=== PATIENT | female | born 1950 | race Caucasian/White ===

== ENCOUNTER 2018-05-13 08:56 | Day surgery (SDC) | payer MEDICARE ==
[2018-05-13] MEDS ORDERED: Lidocaine 1% 30 ML SDV INJECT ONE (08:57)
[2018-05-13] MEDS ORDERED: Propofol 200 MG/20 ML SDV IV ONE (08:57)
[2018-05-13] MEDS ORDERED: Lactated Ringers 1,000 ML IV SCH (09:00)
--- NOTE | 2018-05-13 11:29 | PCM.OPNOTE ---
- General Post-Op/Procedure Note Date of Surgery/Procedure: 05/13/18 Operative Procedure(s): c scope with bx Findings: transverse colon polyp ascending colon polyp rectal Pre Op Diagnosis: + Cologuard Post-Op Diagnosis: transverse colon polyp. ascending colon polyp. rectal Anesthesia Technique: MAC Primary Surgeon: Jose Soliz Anesthesia Provider: John Paul Katz Pathology: transverse colon polyp ascending colon polyp Complications: None Condition: Good Free Text/Narrative:: see dictation
--- NOTE | 2018-05-13 14:44 | OR ---
DATE OF OPERATION: 05/13/2018 SURGEON: Jose Soliz MD PROCEDURE PERFORMED: Colonoscopy with cold forceps biopsy. PREOPERATIVE DIAGNOSIS: Positive Cologuard. POSTOPERATIVE DIAGNOSES: Ascending colon polyp, transverse colon polyp, and rectal polyp. INDICATIONS FOR PROCEDURE: This is a 67-year-old white female, who apparently had a colonoscopy 5 years ago which was negative, had a recent Cologuard test which did come back as positive. She was offered and accepted colonoscopy as part of her followup. DESCRIPTION OF OPERATION: After an excellent IV sedation was administered, digital rectal exam was performed. No marked abnormality was noted. Flexible colonoscope was inserted and advanced to the cecum without difficulty. The prep was excellent. The following findings were noted. Ascending colon, distal ascending colon polyp, biopsied with cold biopsy forceps and sent for permanent. This measured approximately 3 mm in size. Transverse colon, at the distal transverse colon, an additional small polyp approximately 3 mm, biopsied and sent for permanent. Descending colon was unremarkable. The sigmoid was unremarkable. At the proximal rectum near the pelvis, though just beyond the pelvic brim, there was a small pedunculated polyp, we were unable to maneuver the scope to get a loop snare around it or the biopsy forceps. Attempts using a rigid sigmoidoscope were also unsuccessful in being able to visualize and biopsy. The size is approximately 4 mm. We elected to attempt this removal in the clinic with the flexible sigmoidoscope, which was smaller and flexible and more easy to use. /[id number] /MODL
== END 2018-05-13 12:25 | disposition home or self-care (01) ==
LOC: FB.SDS 08:56
PROVIDERS: ATTEND Surgery
DX: D12.2 Benign neoplasm of ascending colon (principal); D12.3 Benign neoplasm of transverse colon; K62.1 Rectal polyp; I10 Essential (primary) hypertension; E78.00 Pure hypercholesterolemia, unspecified; F41.9 Anxiety disorder, unspecified; F32.9 Major depressive disorder, single episode, unspecified; E66.01 Morbid (severe) obesity due to excess calories; Z68.42 Body mass index [BMI] 45.0-49.9, adult; Z87.891 Personal history of nicotine dependence; Z83.71 Family history of colonic polyps; Z79.899 Other long term (current) drug therapy
CPT/HCPCS: 00811; 45380; J2001; J2704; J7120; 88305

== ENCOUNTER 2020-07-25 06:40 | Day surgery (SDC) | payer MEDICARE ==
[2020-07-25] MEDS ORDERED: Glycopyrrolate 0.2 MG/ML 5 ML MDV IV ONE (06:41)
[2020-07-25] MEDS ORDERED: Propofol 200 MG/20 ML SDV IV ONE (06:41)
[2020-07-25] MEDS ORDERED: Lidocaine 2% 5 ML SDV IV ONE (06:41)
[2020-07-25] MEDS ORDERED: Lactated Ringers 1,000 ML IV SCH (06:45)
[2020-07-25] MEDS ORDERED: Sodium Chloride 0.9% 10 ML Syringe FLUSH PRN (06:45)
--- NOTE | 2020-07-25 08:46 | PCM.HPR ---
H & P Addendum review - H & P Addendum Review Date of Original H & P: 07/21/20 Date Reviewed: 07/25/20 Time Reviewed: 08:02 Patient was Examined: No Changes
--- NOTE | 2020-07-25 08:48 | PCM.OPNOTE ---
- General Post-Op/Procedure Note Date of Surgery/Procedure: 07/25/20 Operative Procedure(s): Colonoscopy with bx and polypectomy Findings: Sig colitis, sig tics, rectal polyp Pre Op Diagnosis: Abd pain, hematochezia Post-Op Diagnosis: Same Anesthesia Technique: MAC Primary Surgeon: Chad Roberson Complications: None Condition: Good
--- NOTE | 2020-07-26 08:59 | OR ---
DATE OF OPERATION: 07/25/2020 SURGEON: Chad Roberson MD PREOPERATIVE DIAGNOSIS: Hematochezia with abdominal pain. POSTOPERATIVE DIAGNOSES: 1. Sigmoid colitis. 2. Sigmoid diverticulosis. 3. Rectal polyp. PROCEDURE: Colonoscopy with biopsies and polypectomy. ANESTHESIA: IV sedation. PROCEDURE: The patient was brought to the procedure room, where she was placed on her left side and IV sedation administered. Digital rectal exam was performed, which was normal. The colonoscope was inserted and advanced to the level of the cecum without difficulty. Cecal position was confirmed by identifying the appendiceal lumen and ileocecal valve. Prep was good and surfaces were well visualized. Upon withdrawing the scope, the ascending, transverse, and descending colon were normal in appearance. The sigmoid colon had two areas of colitis, each measuring approximately 3 cm in length and were approximately 1/4 circumferential. These were characterized with inflammation, friability, and a central erosion area which was likely the area of bleeding that is now healing. This could be consistent with ischemic colitis or less likely ulcerative colitis or Crohn disease. I did two biopsies from each of these areas. There were also multiple sigmoid diverticula present. The rectum has a small 6 mm sessile polyp located 10 cm from the anal verge that was removed with a hot snare and retrieved for pathology review. Retroflexion was normal. Air was removed and the scope withdrawn. The patient tolerated the procedure well and returned to recovery in stable condition. The patient will be contacted with the pathology report when it returns. I would recommend she undergo surveillance colonoscopy again in five years. /[id number] REBA/CHIKI
== END 2020-07-25 09:47 | disposition home or self-care (01) ==
LOC: FB.SDS 06:40
PROVIDERS: ATTEND Surgery
DX: K62.1 Rectal polyp (principal); K57.30 Diverticulosis of large intestine without perforation or abscess without bleeding; K52.9 Noninfective gastroenteritis and colitis, unspecified; I10 Essential (primary) hypertension; E78.5 Hyperlipidemia, unspecified; E11.9 Type 2 diabetes mellitus without complications; E66.01 Morbid (severe) obesity due to excess calories; Z68.42 Body mass index [BMI] 45.0-49.9, adult; Z87.891 Personal history of nicotine dependence
CPT/HCPCS: 00811-QZ; 82947; 88305; J2704; J3490; J7120

== ENCOUNTER 2021-03-05 11:50 | Emergency (ER) | payer MEDICARE ==
--- NOTE | 2021-03-05 12:59 | EDM.PDOC ---
ED HPI GENERAL MEDICAL PROBLEM - General Chief Complaint: Cardiovascular Problem Stated Complaint: chest pain Time Seen by Provider: 03/05/21 12:10 Source of Information: Reports: Patient History Limitations: Reports: No Limitations - History of Present Illness INITIAL COMMENTS - FREE TEXT/NARRATIVE: c/o palpitations x 1-2m has not d/w PCP Shannon Reynam, in process of changing to new doc Dr Dupont, had waited to start of new year to make appointment as her insurance had changed last saw Shannon 6m ago, reports her A1C was 6 then, "borderline," and she was begun on Januvia also on BP meds x 2 and omeprazole no cp, never had CV issues, never saw network associate no sob/STONE can feel her heart pound in her chest, HR 91 when resting and alone in room, HR 117 when I was speaking to here EKG at 12:04p with SR, rate 82, PACs noted, also with sinus arrhythmia, low voltage (pt with BMI 46), no acute/ST/ischemic changes SH: worked 40y as RN, 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24h 03/05/21 [Rx] Past Medical History HEENT History: Reports: Impaired Vision Cardiovascular History: Reports: High Cholesterol, Hypertension Respiratory History: Reports: None Gastrointestinal History: Reports: GERD Genitourinary History: Reports: Other (See Below) Other Genitourinary History: TENDENCY TO HAVE YEAST INFECTIONS AMY WITH ANTIBIOTICS REHABILITATION MANAGER History: Reports: Other REHABILITATION MANAGER History: II PARA II Musculoskeletal History: Reports: None Neurological History: Reports: None Psychiatric History: Reports: Anxiety Endocrine/Metabolic History: Reports: Diabetes, Type II, Obesity/BMI 30+ Hematologic History: Reports: Anemia Immunologic History: Reports: None Oncologic (Cancer) History: Reports: None Dermatologic History: Reports: Other (See Below) Other Dermatologic History: LARGE 10 CM CIRCULAR AREA ON MIDBACK, STATES IS FROM CHRONIC RASH. - Infectious Disease History Infectious Disease History: Reports: None - Past Surgical History Head Surgeries/Procedures: Reports: None HEENT Surgical History: Reports: Tonsillectomy Cardiovascular Surgical History: Reports: None Respiratory Surgical History: Reports: None GI Surgical History: Reports: Appendectomy, Colonoscopy, EGD Female Surgical History: Reports: Hysterectomy, Salpingo-Oophorectomy Neurological Surgical History: Reports: None Musculoskeletal Surgical History: Reports: None Oncologic Surgical History: Reports: None Social & Family History - Family History GI: Reports: Colon Polyps - Tobacco Use Tobacco Use Status *Q: Never Tobacco User - Caffeine Use Caffeine Use: Reports: None - Recreational Drug Use Recreational Drug Use: No ED ROS GENERAL - Review of Systems Review Of Systems: See Below Constitutional: Reports: No Symptoms HEENT: Reports: No Symptoms Respiratory: Reports: No Symptoms Cardiovascular: Reports: Palpitations. Denies: Chest Pain, Edema Endocrine: Reports: No Symptoms GI/Abdominal: Reports: No Symptoms : Reports: No Symptoms Musculoskeletal: Reports: No Symptoms Skin: Reports: No Symptoms Neurological: Reports: No Symptoms Psychiatric: Reports: No Symptoms Hematologic/Lymphatic: Reports: No Symptoms Immunologic: Reports: No Symptoms ED EXAM, GENERAL - Physical Exam Exam: See Below Exam Limited By: No Limitations General Appearance: Alert, WD/WN, No Apparent Distress Eye Exam: Bilateral Eye: EOMI, PERRL Ears: Hearing Grossly Normal Nose: Normal Inspection, Normal Mucosa, No Blood Throat/Mouth: Normal Inspection, Normal Lips, Normal Teeth, Normal Gums, Normal Oropharynx, Normal Voice, No Airway Compromise Head: Atraumatic, Normocephalic Neck: Normal Inspection, Supple, Non-Tender, Full Range of Motion. No: Lymphadenopathy (R), Lymphadenopathy (L) Respiratory/Chest: No Respiratory Distress, Lungs Clear, Normal Breath Sounds, No Accessory Muscle Use, Chest Non-Tender Cardiovascular: Other (premature beats, no heave, no m/r/g, quiet precordium) GI/Abdominal: Normal Bowel Sounds, Soft, Non-Tender, No Distention Back Exam: Normal Inspection, Full Range of Motion. No: CVA Tenderness (R), CVA Tenderness (L) Extremities: Normal Inspection, Normal Range of Motion, Non-Tender, Other (trace pretib edema b/l, symmetric) Neurological: Alert, Oriented, CN II-XII Intact, Normal Cognition, Normal Gait, No Motor/Sensory Deficits Psychiatric: Other (very anxious) Skin Exam: Warm, Dry, Intact, Normal Color, No Rash Lymphatic: No Adenopathy Course - Vital Signs Last Recorded V/S: Last Vital Signs Temp 36.4 C 03/05/21 11:50 Pulse 111 H 03/05/21 13:27 Resp 18 03/05/21 13:27 BP 152/63 H 03/05/21 13:27 Pulse Ox 99 03/05/21 13:27 - Orders/Labs/Meds Orders: Active Orders 24 hr Category Date Time Status Chest 2V [CR] Stat Exams 03/05/21 12:53 Taken EKG 12 Lead [EK] Routine Ther 03/05/21 12:13 Ordered Labs: Laboratory Tests 03/05/21 03/05/21 03/05/21 Range/Units 12:13 12:25 12:25 WBC 6.3 (3.0-10.3) x10-3/uL RBC 4.69 (3.60-5.20) x10(6)uL Hgb 12.7 (11.4-15.5) g/dL Hct 39.5 (34.2-48.2) % MCV 84.1 (76.7-100.5) fL MCH 27.0 (23.9-33.9) pg MCHC 32.1 (31.9-34.8) g/dL RDW 15.7 (12.3-16.5) % Plt Count 189 (151-488) x10(3)uL MPV 7.1 (7.1-12.4) fL Neut % (Auto) 73.0 (30.8-76.2) % Lymph % (Auto) 20.7 (18.4-52.1) % Potter % (Auto) 4.7 (4.4-15.7) % Eos % (Auto) 1.2 (0.6-8.1) % Baso % (Auto) 0.4 (0.2-1.5) % Neut # (Auto) 4.6 (1.5-6.3) x10-3/uL Lymph # (Auto) 1.3 (1.0-4.4) x10-3/uL Potter # (Auto) 0.3 (0.3-1.0) x10-3/uL Eos # (Auto) 0.1 (0.0-0.8) x10-3/uL Baso # (Auto) 0.0 (0.0-0.1) x10-3/uL D-Dimer, Quantitative < 0.19 (0.0-0.59) mg/LFEU Sodium (135-145) mmol/L Potassium (3.5-5.3) mmol/L Chloride (100-110) mmol/L Carbon Dioxide (21-32) mmol/L BUN (7-18) mg/dL Creatinine (0.55-1.02) mg/dL Est Cr Clr Drug Dosing mL/min Estimated GFR (MDRD) (>60) BUN/Creatinine Ratio (9-20) Glucose (80-116) mg/dL Hemoglobin A1c (<5.7) % Calcium (8.6-10.2) mg/dL Magnesium (1.8-2.5) mg/dL Total Bilirubin (0.1-1.3) mg/dL AST (5-25) IU/L ALT (12-36) U/L Alkaline Phosphatase (56-112) IU/L Troponin I (4.0-60.3) pg/mL C-Reactive Protein (0.5-0.9) mg/dL NT-Pro-B Natriuret Pep (<=125) pg/mL Total Protein (6.0-8.0) g/dL Albumin (3.2-4.6) g/dL Globulin g/dL Albumin/Globulin Ratio TSH, Ultra Sensitive (0.36-3.74) IU/mL Urine Color Yellow (YELLOW) Urine Appearance Clear (CLEAR) Urine pH 7.0 H (5.0-6.5) Ur Specific [place] 1.010 (1.010-1.025) Urine Protein Negative (NEGATIVE) mg/dL Urine Glucose (UA) Normal (NORMAL) mg/dL Urine Ketones Negative (NEGATIVE) mg/dL Urine Occult Blood Negative (NEGATIVE) Urine Nitrite Negative (NEGATIVE) Urine Bilirubin Negative (NEGATIVE) Urine Urobilinogen Normal (NEGATIVE) mg/dL Ur Leukocyte Esterase Negative (NEGATIVE) Urine RBC 0-5 (0-5) Urine WBC 0-5 (0-5) Ur Squamous Epith Cells Rare (NS,R,O) Urine Bacteria Rare H (NS) SARS-CoV-2 RNA (CRISTOFER) (NEGATIVE) 03/05/21 03/05/21 03/05/21 Range/Units 12:25 12:25 12:25 WBC (3.0-10.3) x10-3/uL RBC (3.60-5.20) x10(6)uL Hgb (11.4-15.5) g/dL Hct (34.2-48.2) % MCV (76.7-100.5) fL MCH (23.9-33.9) pg MCHC (31.9-34.8) g/dL RDW (12.3-16.5) % Plt Count (151-488) x10(3)uL MPV (7.1-12.4) fL Neut % (Auto) (30.8-76.2) % Lymph % (Auto) (18.4-52.1) % Potter % (Auto) (4.4-15.7) % Eos % (Auto) (0.6-8.1) % Baso % (Auto) (0.2-1.5) % Neut # (Auto) (1.5-6.3) x10-3/uL Lymph # (Auto) (1.0-4.4) x10-3/uL Potter # (Auto) (0.3-1.0) x10-3/uL Eos # (Auto) (0.0-0.8) x10-3/uL Baso # (Auto) (0.0-0.1) x10-3/uL D-Dimer, Quantitative (0.0-0.59) mg/LFEU Sodium 140 (135-145) mmol/L Potassium 3.8 (3.5-5.3) mmol/L Chloride 100 (100-110) mmol/L Carbon Dioxide 30 (21-32) mmol/L BUN 12 (7-18) mg/dL Creatinine 0.9 (0.55-1.02) mg/dL Est Cr Clr Drug Dosing 55.23 mL/min Estimated GFR (MDRD) > 60 (>60) BUN/Creatinine Ratio 13.3 (9-20) Glucose 185 H (80-116) mg/dL Hemoglobin A1c (<5.7) % Calcium 8.8 (8.6-10.2) mg/dL Magnesium (1.8-2.5) mg/dL Total Bilirubin 0.6 (0.1-1.3) mg/dL AST 25 (5-25) IU/L ALT 40 H (12-36) U/L Alkaline Phosphatase 98 (56-112) IU/L Troponin I 6.1 (4.0-60.3) pg/mL C-Reactive Protein 3.6 H* (0.5-0.9) mg/dL NT-Pro-B Natriuret Pep 464 H (<=125) pg/mL Total Protein 7.6 (6.0-8.0) g/dL Albumin 3.5 (3.2-4.6) g/dL Globulin 4.1 g/dL Albumin/Globulin Ratio 0.9 TSH, Ultra Sensitive 1.73 (0.36-3.74) IU/mL Urine Color (YELLOW) Urine Appearance (CLEAR) Urine pH (5.0-6.5) Ur Specific [place] (1.010-1.025) Urine Protein (NEGATIVE) mg/dL Urine Glucose (UA) (NORMAL) mg/dL Urine Ketones (NEGATIVE) mg/dL Urine Occult Blood (NEGATIVE) Urine Nitrite (NEGATIVE) Urine Bilirubin (NEGATIVE) Urine Urobilinogen (NEGATIVE) mg/dL Ur Leukocyte Esterase (NEGATIVE) Urine RBC (0-5) Urine WBC (0-5) Ur Squamous Epith Cells (NS,R,O) Urine Bacteria (NS) SARS-CoV-2 RNA (CRISTOFER) (NEGATIVE) 03/05/21 03/05/21 03/05/21 Range/Units 12:25 12:25 13:06 WBC (3.0-10.3) x10-3/uL RBC (3.60-5.20) x10(6)uL Hgb (11.4-15.5) g/dL Hct (34.2-48.2) % MCV (76.7-100.5) fL MCH (23.9-33.9) pg MCHC (31.9-34.8) g/dL RDW (12.3-16.5) % Plt Count (151-488) x10(3)uL MPV (7.1-12.4) fL Neut % (Auto) (30.8-76.2) % Lymph % (Auto) (18.4-52.1) % Potter % (Auto) (4.4-15.7) % Eos % (Auto) (0.6-8.1) % Baso % (Auto) (0.2-1.5) % Neut # (Auto) (1.5-6.3) x10-3/uL Lymph # (Auto) (1.0-4.4) x10-3/uL Potter # (Auto) (0.3-1.0) x10-3/uL Eos # (Auto) (0.0-0.8) x10-3/uL Baso # (Auto) (0.0-0.1) x10-3/uL D-Dimer, Quantitative (0.0-0.59) mg/LFEU Sodium (135-145) mmol/L Potassium (3.5-5.3) mmol/L Chloride (100-110) mmol/L Carbon Dioxide (21-32) mmol/L BUN (7-18) mg/dL Creatinine (0.55-1.02) mg/dL Est Cr Clr Drug Dosing mL/min Estimated GFR (MDRD) (>60) BUN/Creatinine Ratio (9-20) Glucose (80-116) mg/dL Hemoglobin A1c 6.4 H (<5.7) % Calcium (8.6-10.2) mg/dL Magnesium 1.9 (1.8-2.5) mg/dL Total Bilirubin (0.1-1.3) mg/dL AST (5-25) IU/L ALT (12-36) U/L Alkaline Phosphatase (56-112) IU/L Troponin I (4.0-60.3) pg/mL C-Reactive Protein (0.5-0.9) mg/dL NT-Pro-B Natriuret Pep (<=125) pg/mL Total Protein (6.0-8.0) g/dL Albumin (3.2-4.6) g/dL Globulin g/dL Albumin/Globulin Ratio TSH, Ultra Sensitive (0.36-3.74) IU/mL Urine Color (YELLOW) Urine Appearance (CLEAR) Urine pH (5.0-6.5) Ur Specific [place] (1.010-1.025) Urine Protein (NEGATIVE) mg/dL Urine Glucose (UA) (NORMAL) mg/dL Urine Ketones (NEGATIVE) mg/dL Urine Occult Blood (NEGATIVE) Urine Nitrite (NEGATIVE) Urine Bilirubin (NEGATIVE) Urine Urobilinogen (NEGATIVE) mg/dL Ur Leukocyte Esterase (NEGATIVE) Urine RBC (0-5) Urine WBC (0-5) Ur Squamous Epith Cells (NS,R,O) Urine Bacteria (NS) SARS-CoV-2 RNA (CRISTOFER) Negative (NEGATIVE) 03/05/21 Range/Units 14:49 WBC (3.0-10.3) x10-3/uL RBC (3.60-5.20) x10(6)uL Hgb (11.4-15.5) g/dL Hct (34.2-48.2) % MCV (76.7-100.5) fL MCH (23.9-33.9) pg MCHC (31.9-34.8) g/dL RDW (12.3-16.5) % Plt Count (151-488) x10(3)uL MPV (7.1-12.4) fL Neut % (Auto) (30.8-76.2) % Lymph % (Auto) (18.4-52.1) % Potter % (Auto) (4.4-15.7) % Eos % (Auto) (0.6-8.1) % Baso % (Auto) (0.2-1.5) % Neut # (Auto) (1.5-6.3) x10-3/uL Lymph # (Auto) (1.0-4.4) x10-3/uL Potter # (Auto) (0.3-1.0) x10-3/uL Eos # (Auto) (0.0-0.8) x10-3/uL Baso # (Auto) (0.0-0.1) x10-3/uL D-Dimer, Quantitative (0.0-0.59) mg/LFEU Sodium (135-145) mmol/L Potassium (3.5-5.3) mmol/L Chloride (100-110) mmol/L Carbon Dioxide (21-32) mmol/L BUN (7-18) mg/dL Creatinine (0.55-1.02) mg/dL Est Cr Clr Drug Dosing mL/min Estimated GFR (MDRD) (>60) BUN/Creatinine Ratio (9-20) Glucose (80-116) mg/dL Hemoglobin A1c (<5.7) % Calcium (8.6-10.2) mg/dL Magnesium (1.8-2.5) mg/dL Total Bilirubin (0.1-1.3) mg/dL AST (5-25) IU/L ALT (12-36) U/L Alkaline Phosphatase (56-112) IU/L Troponin I 5.7 (4.0-60.3) pg/mL C-Reactive Protein (0.5-0.9) mg/dL NT-Pro-B Natriuret Pep (<=125) pg/mL Total Protein (6.0-8.0) g/dL Albumin (3.2-4.6) g/dL Globulin g/dL Albumin/Globulin Ratio TSH, Ultra Sensitive (0.36-3.74) IU/mL Urine Color (YELLOW) Urine Appearance (CLEAR) Urine pH (5.0-6.5) Ur Specific [place] (1.010-1.025) Urine Protein (NEGATIVE) mg/dL Urine Glucose (UA) (NORMAL) mg/dL Urine Ketones (NEGATIVE) mg/dL Urine Occult Blood (NEGATIVE) Urine Nitrite (NEGATIVE) Urine Bilirubin (NEGATIVE) Urine Urobilinogen (NEGATIVE) mg/dL Ur Leukocyte Esterase (NEGATIVE) Urine RBC (0-5) Urine WBC (0-5) Ur Squamous Epith Cells (NS,R,O) Urine Bacteria (NS) SARS-CoV-2 RNA (CRISTOFER) (NEGATIVE) - Re-Assessments/Exams Free Text/Narrative Re-Assessment/Exam: 03/05/21 15:39 trop x 2 neg BNP 4x ULN c/w possible HF, pt reports CV echo 5y ago in [place] that was normal, will need to be repeated no clinical evidence of ischemia altho cannot be excluded, will tx with ASA 81 mg/d and diltiazem 120 mg/d in the meantime pending further cardiac evaluation inc'd CRP for unclear reason, COVID neg, has had COVID vax x 2 plus booster, no pul sxs no arrhythmias on telemetry other than PACs and intermittent sinus arrhythmia Departure - Departure Time of Disposition: 14:34 Disposition: Home, Self-Care 01 Condition: Good Clinical Impression: Palpitations, Elevated brain natriuretic peptide (BNP) level, Elevated C- reactive protein (CRP), Premature atrial beats, Sinus arrhythmia Prescriptions: Diltiazem HCl [Diltiazem 24Hr ER] 120 mg PO DAILY #21 cap.er.24h Instructions: Palpitations Referrals: Shannon Goerge PA-C [Primary Care Provider] - Forms: ED Department Discharge Additional Instructions: Continue current medications. Take a baby aspirin 81 mg 1 tab daily for now. To help the circulation and heart rate and blood pressure, take diltiazem CD 120 mg 1 tab daily until you receive additional instructions from a network associate. See your PCP in 1-2 days. Next steps often include echocardiogram, 48-hour Holter monitor and a cardiology referral. If you feel worse, return to the Emergency Department. Avoid caffeine, as you have been doing. Sepsis Event Note (ED) - Evaluation Sepsis Screening Result: No Definite Risk - Focused Exam Vital Signs: Vital Signs Temp Pulse Resp BP Pulse Ox 03/05/21 13:27 111 H 18 152/63 H 99 03/05/21 13:11 111 H 16 152/71 H 99 03/05/21 11:50 36.4 C 97 17 165/90 H 99 - My Orders Last 24 Hours: My Active Orders 03/05/21 12:13 EKG 12 Lead [EK] Routine 03/05/21 12:53 Chest 2V [CR] Stat - Assessment/Plan Last 24 Hours: My Active Orders 03/05/21 12:13 EKG 12 Lead [EK] Routine 03/05/21 12:53 Chest 2V [CR] Stat
[2021-03-05 13:07] LABS: HEMOGLOBIN A1C 6.4 % (<5.7)
== END 2021-03-05 15:45 | disposition home or self-care (01) ==
LOC: FB.ED 11:50
DX: I49.1 Atrial premature depolarization (principal); R00.2 Palpitations; R79.0 Abnormal level of blood mineral; R79.82 Elevated C-reactive protein (CRP); E78.00 Pure hypercholesterolemia, unspecified; I10 Essential (primary) hypertension; E11.9 Type 2 diabetes mellitus without complications; E66.9 Obesity, unspecified; Z68.30 Body mass index [BMI] 30.0-30.9, adult; Z79.899 Other long term (current) drug therapy; Z20.822 Contact with and (suspected) exposure to COVID-19
CPT/HCPCS: 36415; 71046; 80053; 81001; 83036; 83735; 83880; 84443; 84484; 85025; 85379; 86140; 93005; 99285; U0002